=== PATIENT | male | born 1965 ===

== ENCOUNTER 2020-05-12 09:43 | Outpatient (REF) | payer MEDICAID, SELFPAY | END 2020-05-12 09:44 | disposition home or self-care (01) | LOC: HO.LAB 09:43 | PROVIDERS: Visit Provider Internal Medicine | DX: Z20.828 Contact with and (suspected) exposure to other viral communicable diseases (principal) | CPT/HCPCS: C9803; U0003 ==

== ENCOUNTER → 2020-06-14 14:32 | Outpatient (BNVA) | payer OTHER, SELFPAY | PROVIDERS: Visit Provider Physician Assistant | DX: Z13.89 Encounter for screening for other disorder (principal) | CPT/HCPCS: Q3014 ==

== ENCOUNTER 2020-07-20 18:27 | Emergency (ER) | payer OTHER, SELFPAY ==
[2020-07-20 19:33] VITALS: BP 131/81; PULSE 95; RESP 20; TEMP 36.8; O2SAT 98; BMI 27.3
== END 2020-07-21 00:35 | disposition left against medical advice (07) ==
PROVIDERS: Emergency Provider Emergency Medicine; PCP Internal Medicine
DX: K61.0 Anal abscess (principal)
CPT/HCPCS: 99282

== ENCOUNTER 2020-08-05 13:29 | Day surgery (SDC) | payer OTHER, SELFPAY ==
--- NOTE | 2020-08-04 08:56 | HO.ANESPROP2 ---
Documented by User: Celi Soria 08/04/20 08:58 HPI - Anesthesia Eval Consult details Narrative: 55yo M for Colonoscopy [facility] Active Problems Active Problems: All Active Problems (Updated 07/29/20 @ 13:33 by Yanni Orta) Encounter for screening colonoscopy (Acute) Diabetes (Acute) Anxiety and depression (Acute) Past Medical History Medical History Anxiety Depression Diabetes GERD (gastroesophageal reflux disease) Hypothyroid Family History Family History Father No problems noted. Mother No problems noted. Social History Social History Alcohol intake: current Smoking Status: Current every day smoker Use of substances other than those prescribed or required for medical reasons: No Have you been hit, kicked, punched, or otherwise hurt by someone within the past year? If so, by whom?: No Advance Directives: No Advance Directives Information Provided: Yes Current occupational status: [employer] Allergies Allergy/AdvReac Type Severity Reaction Status Date / Time No Known Allergies Allergy Verified 07/20/20 19:38 Home Medications Medication Instructions Recorded Confirmed Last Taken Type escitalopram oxalate 10 mg tablet 10 mg PO DAILY 06/14/20 08/01/20 Unknown History levothyroxine 75 mcg capsule 75 mcg PO DAILY 06/14/20 08/01/20 Unknown History omeprazole 20 mg capsule,delayed 20 mg PO DAILY 06/14/20 08/01/20 Unknown History release sitagliptin 50 mg-metformin 1,000 1 tab PO BID 06/14/20 08/01/20 Unknown History mg tablet tramadol 50 mg tablet 50 mg PO DAILY 06/14/20 08/01/20 Unknown History Exam Exam Date and Time: August 04, 2020 0856 Assessment and Plan Assessment Anesthesia Assessment: Chart Reviewed Documented by User: Cristela Marie 08/05/20 13:54 [facility] Past Medical History Medical History Anxiety Depression Diabetes GERD (gastroesophageal reflux disease) Hypothyroid Family History Family History Father No problems noted. Mother No problems noted. Social History Social History Alcohol intake: current Smoking Status: Current every day smoker Use of substances other than those prescribed or required for medical reasons: No Have you been hit, kicked, punched, or otherwise hurt by someone within the past year? If so, by whom?: No Advance Directives: No Advance Directives Information Provided: Yes Current occupational status: [employer] Allergies Allergy/AdvReac Type Severity Reaction Status Date / Time No Known Allergies Allergy Verified 07/20/20 19:38 Home Medications Medication Instructions Recorded Confirmed Last Taken Type escitalopram oxalate 10 mg tablet 10 mg PO DAILY 06/14/20 08/01/20 Unknown History levothyroxine 75 mcg capsule 75 mcg PO DAILY 06/14/20 08/01/20 Unknown History omeprazole 20 mg capsule,delayed 20 mg PO DAILY 06/14/20 08/01/20 Unknown History release sitagliptin 50 mg-metformin 1,000 1 tab PO BID 06/14/20 08/01/20 Unknown History mg tablet tramadol 50 mg tablet 50 mg PO DAILY 06/14/20 08/01/20 Unknown History Exam Airway Mallampati Class: II TM Dist: >3cm Neck ROM: Full Assessment and Plan Assessment Anesthesia Assessment: Anesthesia Plan Discussed and Chart Reviewed Final Anesthetic Review NPO: Yes ASA Class: II Final Preanesthetic Review: No Changes in Pt Med Stat and Consent Obtained/Reviewed Patient Risk: Low Procedure Risk: Low Assessment/Block/Sedation in SS: Assess/Block/Sedation-SS Anesthetic Plan Anesthetic Plan: MAC: Disposition: Standard PACU
--- NOTE | 2020-08-05 13:31 | W.PM.OPN ---
Operative Note Operative Note Date of Service: 08/05/20 Narrative: Pre-op diagnosis: Colon cancer screening Post-op diagnosis: other (colon polyps, diverticulosis, hemorrhoids) Procedure: COLONOSCOPY TO CECUM WITH BIOPSIES AND SNARE POLYPECTOMY Consent: Indications for the procedure and potential complications of bleeding, perforation, reaction to medications and missed diagnosis were discussed with the patient and informed consent was obtained. Instrument: Olympus PCF H 190 L variable stiffness pediatric colonoscope Monitoring: Vital signs and clinical assessment, intermittent blood pressure monitoring, continuous EKG monitoring, Pulse oximetry and Carbon Dioxide monitoring were done throughout the procedure. Colon withdrawl time was 22 minutes. Procedure: The patient was placed in the left lateral decubitis position and pre-procedure medications were administered. After a digital rectal examination of the ano-rectum, the video colonoscope was inserted into the rectum and advanced through the colon to the cecum. The colonoscope was slowly withdrawn in a retrograde panoramic fashion and the colon mucosa was carefully examined including a retroflexed view of the rectum. Findings and interventions are described below. Procedure Difficulty: Without difficulty Findings: Terminal Ileum: Not evaluated Cecum: Normal Ascending Colon: Normal Transverse Colon: A 10 mm sessile polyp in distal tranverse colon removed with a hot snare. A 4-5 mm diminutive appearing polyp removed with the cold biopsy. Descending Colon: Moderate diverticulosis Sigmoid Colon: Moderate diverticulosis Rectum: A 10-12 mm sessile polyp removed with a hot snare Ano-rectum: Moderate internal hemorrhoids Colon preparation: Good after some irrigation Impression and Post Procedure Diagnosis: Colonoscopy Findings: Three small to medium sized polyps removed Moderate diverticulosis seen in the left colon Moderate hemorrhoids on retroflexed exam. Plan: Await pathology results Patient has an appointment on 08/25/20 in the GI Clinic with CUBA Baptiste . Repeat Colonoscopy interval based on path results - in 3 years if polyps are adenomatous and 10 years if polyps are hyperplastic. Above findings were reviewed with the patient and colon polyps and diverticulosis handouts were given in the discharge area Surgeon: Gab Ge MD Anesthesia: MAC (Adelina Freeman CRNA) Call Center Support Representative: Curry Watson Estimated blood loss (mL): 0 Pathology: other (A. TC polyps x 2, B. Rectal polyp x 1) Condition: stable Disposition: PACU
--- NOTE | 2020-08-05 13:31 | MHC.SHP ---
Pre-Procedural Eval Section A The patient is an INPATIENT: No The History & Physical has been completed within 30 days and I have reviewed it.: No Section B Chief Complaint: Screening Details of Present Illness: 55 y/o male referred for index screening colonoscopy- no FDR with colon cancer. He has a good appetite- his bowels seem to fluctuate- feels like he doesnt completely evacuate- admits to anxiety. Appetite is good. Relevant Family History (Specify if Yes): No Relevant Social History: Tobacco Use Present Medications: see Short Stay Collaborative assessment Medical History: Significant History (Diabetes mellitus, anxiety and depression) History of Previous Operations: No relevant previous surgery Allergies: Allergies Allergy/AdvReac Type Severity Reaction Status Date / Time No Known Allergies Allergy Verified 07/20/20 19:38 Review of Systems Sugical H&P ROS: Negative: Constitution, Cardiovascular, Respiratory and Gastrointestinal Exam Surgical H&P Exam: Normal: Heart, Normal: Lungs, Normal: Extremities and Normal: Abdomen Plan Diagnosis/Plan: Unchanged I have reviewed the history and physical and performed a pertinent physical examination on my patient. No changes have occurred unless specified.
[2020-08-05 13:33] VITALS: BP 109/77; PULSE 76; RESP 18; TEMP 36.2; O2SAT 98; BMI 65.4
[2020-08-05 13:55] LABS: Glucose, Whole Blood 123 mg/dL (60-115)
[2020-08-05] MEDS: Lactated Ringers 1,000 ML 100 ML IVCONT (14:03)
[2020-08-05 15:10] VITALS: BP 94/55; PULSE 73; RESP 14; TEMP 36.7; O2SAT 99
[2020-08-05 15:25] VITALS: BP 115/76; PULSE 73; RESP 16; TEMP 36.7; O2SAT 99
== END 2020-08-05 16:00 | disposition home or self-care (01) ==
PROVIDERS: PCP Internal Medicine; Visit Provider Internal Medicine Gastroenterology
PROC: 0DJD8ZZ Inspection of Lower Intestinal Tract, Via Natural or Artificial Opening Endoscopic (ICD-10-PCS; CPT 45378; principal; 2020-08-05 14:10)
DX: Z12.11 Encounter for screening for malignant neoplasm of colon (principal); K63.5 Polyp of colon; K62.1 Rectal polyp; K57.30 Diverticulosis of large intestine without perforation or abscess without bleeding; K64.8 Other hemorrhoids; K21.9 Gastro-esophageal reflux disease without esophagitis; F32.9 Major depressive disorder, single episode, unspecified; E11.9 Type 2 diabetes mellitus without complications; Z79.84 Long term (current) use of oral hypoglycemic drugs; Z79.899 Other long term (current) drug therapy; F17.210 Nicotine dependence, cigarettes, uncomplicated
CPT/HCPCS: 45385; 45380; 82947; 88305

== ENCOUNTER → 2020-08-25 09:21 | Outpatient (BNVA) | payer OTHER, SELFPAY | PROVIDERS: Visit Provider Physician Assistant | DX: K57.30 Diverticulosis of large intestine without perforation or abscess without bleeding (principal); K63.5 Polyp of colon | CPT/HCPCS: Q3014 ==

== ENCOUNTER 2020-11-08 13:47 | Outpatient (REF) | payer OTHER, SELFPAY | END 2020-11-08 13:48 | disposition home or self-care (01) | LOC: HO.LAB 13:47 | PROVIDERS: PCP Internal Medicine; Visit Provider Internal Medicine | DX: Z20.822 Contact with and (suspected) exposure to COVID-19 (principal) | CPT/HCPCS: C9803; U0003; U0005 ==

== ENCOUNTER → 2021-01-27 09:52 | Outpatient (BNVA) | payer OTHER, SELFPAY | PROVIDERS: PCP Internal Medicine; Visit Provider Internal Medicine | DX: M47.817 Spondylosis without myelopathy or radiculopathy, lumbosacral region (principal); M62.830 Muscle spasm of back | CPT/HCPCS: 99202 ==

== ENCOUNTER 2021-02-16 16:30 | Outpatient (REF) | payer OTHER, SELFPAY ==
--- NOTE | ~2021-02-16 | MR_ITS ---
MR LUMBAR SPINE WITHOUT CONTRAST CLINICAL INFORMATION: Spondylosis without myelopathy or radiculopathy. COMPARISON: None available. TECHNIQUE: MRI of the lumbar spine was obtained using routine sequences without contrast. FINDINGS: 5 nonrib-bearing lumbar-type vertebral bodies. Lumbar alignment is maintained. Vertebral body heights are preserved. The disc volumes are normal and the disc remain well-hydrated. Mild bone marrow edema along the inferior endplate of L4 anteriorly, mostly degenerative or inflammatory. There is no additional bone marrow edema. There are no acute fractures. The L1-L2 and the L2-L3 disc contours are normal. No central canal stenosis and no foraminal stenosis at these levels. L3-L4: Small annular disc bulge and moderate bilateral facet arthropathy. No central canal stenosis. There is mild to moderate bilateral foraminal encroachment. L4-L5: Diffuse annular disc bulge and moderate bilateral facet arthropathy and ligamentum flavum thickening. There is no central canal stenosis. Moderate bilateral foraminal stenosis with mild mass effect on the exiting L4 nerve roots bilaterally. L5-S1: Shallow central disc protrusion mildly indents the ventral thecal sac. Background annular disc bulge and moderate bilateral facet arthropathy. MR/MR lumbar spine wo con IMPRESSION: - At L4-L5, spondylitic changes result in moderate bilateral foraminal stenosis with mild mass effect on the exiting L4 nerve roots bilaterally. - At L5-S1, a shallow central disc protrusion mildly indents the ventral thecal sac.
== END 2021-02-16 16:31 | disposition home or self-care (01) ==
LOC: HO.MRI 16:30
PROVIDERS: PCP Internal Medicine; Visit Provider Internal Medicine
DX: M47.817 Spondylosis without myelopathy or radiculopathy, lumbosacral region (principal)
CPT/HCPCS: 72148

== ENCOUNTER 2021-03-01 06:28 | Outpatient (REF) | payer OTHER, SELFPAY | END 2021-03-01 06:29 | disposition home or self-care (01) | LOC: HO.RADIR 06:28 | PROVIDERS: Visit Provider Internal Medicine | DX: Z13.89 Encounter for screening for other disorder (principal) ==

== ENCOUNTER 2021-03-01 11:52 | Day surgery (SDC) | payer OTHER, SELFPAY ==
--- NOTE | 2021-02-28 15:14 | P.CONAN_ITS ---
Documented by User: Celi Soria NP 02/28/21 15:16 HPI - Anesthesia Eval Consult details Narrative: 55yo M for Medial Branch Block [facility] Active Problems Active Problems: All Active Problems (Updated 01/27/21 @ 10:42 by Henry Keller MD) Spasm of lumbar paraspinous muscle (Acute) Lumbar and sacral spondyloarthritis (Acute) Diverticula of intestine (Acute) Hyperplastic colon polyp (Acute) Encounter for screening colonoscopy (Acute) Diabetes (Acute) Anxiety and depression (Acute) Past Medical History Medical History Anxiety Depression Diabetes GERD (gastroesophageal reflux disease) Hypothyroid Lumbar and sacral spondyloarthritis Family History Family History Father No problems noted. Mother No problems noted. Surgical History Surgical History (Updated 08/25/20 @ 09:23 by Azalia Portillo CMA) Hx of colonoscopy Social History Social History (Updated 08/25/20 @ 09:25 by Azalia Portillo CMA) Household Members: None Household Members Other:: alone Alcohol intake: current Alcohol intake frequency: does not drink Cigarettes Per Day: 4 Advance Directives: No Advance Directives Information Provided: Yes Current occupational status: disabled Meds Allergies Allergy/AdvReac Type Severity Reaction Status Date / Time No Known Allergies Allergy Verified 03/01/21 13:02 Home Medications Medication Instructions Recorded Confirmed Last Taken Type escitalopram oxalate 10 mg tablet 10 mg PO DAILY 06/14/20 08/25/20 Unknown History (Lexapro) levothyroxine 75 mcg capsule 75 mcg PO DAILY 06/14/20 08/25/20 Unknown History omeprazole 20 mg capsule,delayed 20 mg PO DAILY 06/14/20 08/25/20 Unknown History release sitagliptin 50 mg-metformin 1,000 1 tab PO BID 06/14/20 08/25/20 02/28/21 History mg tablet (Janumet) tramadol 50 mg tablet 50 mg PO DAILY 06/14/20 08/25/20 Unknown History Exam Exam Date and Time: February 28, 2021 2364 Pertinent Lab Results Pertinent Lab Results: Laboratory Tests 06/20/19 06/20/19 07:15 07:15 WBC 8.6 Hgb 15.9 Hct 49.0 Plt Count 193 Sodium 139 Potassium 4.4 Chloride 104 BUN 14 Creatinine 0.96 Assessment and Plan Assessment Anesthesia Assessment: Chart Reviewed Documented by User: Katie Fink MD 03/01/21 13:03 [facility] Past Medical History Medical History Anxiety Depression Diabetes GERD (gastroesophageal reflux disease) Hypothyroid Lumbar and sacral spondyloarthritis Functional capacity: independent ambulation Family History Family History Father No problems noted. Mother No problems noted. Family history of problems with anesthesia: No Surgical History Surgical History (Updated 08/25/20 @ 09:23 by Azalia Portillo CMA) Hx of colonoscopy History of Problems with Anesthesia: No Social History Social History (Updated 08/25/20 @ 09:25 by Azalia Portillo CMA) Household Members: None Household Members Other:: alone Alcohol intake: current Alcohol intake frequency: does not drink Cigarettes Per Day: 4 Advance Directives: No Advance Directives Information Provided: Yes Current occupational status: disabled Meds Allergies Allergy/AdvReac Type Severity Reaction Status Date / Time No Known Allergies Allergy Verified 03/01/21 13:02 Home Medications Medication Instructions Recorded Confirmed Last Taken Type escitalopram oxalate 10 mg tablet 10 mg PO DAILY 06/14/20 08/25/20 Unknown History (Lexapro) levothyroxine 75 mcg capsule 75 mcg PO DAILY 06/14/20 08/25/20 Unknown History omeprazole 20 mg capsule,delayed 20 mg PO DAILY 06/14/20 08/25/20 Unknown Histor y release sitagliptin 50 mg-metformin 1,000 1 tab PO BID 06/14/20 08/25/20 02/28/21 History mg tablet (Janumet) tramadol 50 mg tablet 50 mg PO DAILY 06/14/20 08/25/20 Unknown History Exam Airway Mallampati Class: II TM Dist: >3cm Neck ROM: Full Heart: RRR Lungs: CYS Assessment and Plan Final Anesthetic Review Family History of Problems with Anesthesia: No History of Problems with Anesthesia: No
--- NOTE | ~2021-03-01 | FL_ITS ---
EXAMINATION: XR FLUOROSCOPY WITH IMAGES CLINICAL INFORMATION: Bilateral medial branch block. Spondylosis without myelopathy or radiculopathy COMPARISON: MR lumbar spine 02/16/2021 TECHNIQUE: Fluoroscopy performed by Dr. Keller. Fluoroscopy time: 0.4 minutes DAP: 1.65 mGycm2 Images: 3 FINDINGS: There are spinal needles overlying the bilateral outer L3, L4, and L5 neural foramen. There is contrast seen in the respective nerve sheaths. Some early transforaminal epidural extension is suggested. No visible vascular communication. FL/FL guidance in OR IMPRESSION: Fluoroscopy for pain management procedures.
[2021-03-01 12:45] VITALS: BP 127/82; PULSE 81; RESP 16; TEMP 37; O2SAT 97
[2021-03-01 12:59] LABS: Glucose, Whole Blood 124 mg/dL (60-115)
[2021-03-01 13:02] VITALS: BP 127/82; PULSE 81; RESP 16; TEMP 37; O2SAT 97; BMI 27.4
[2021-03-01] MEDS: Lactated Ringers 1,000 ML 100 ML IVCONT (13:29)
--- NOTE | 2021-03-01 13:40 | MHC.SHP ---
Pre-Procedural Eval Section A Date of Service: 03/01/21 The patient is an INPATIENT: No Changes since office visit: Yes Patient answered all questions The History & Physical has been completed within 30 days and I have reviewed it.: Yes Section B Chief Complaint: spondylosis without myelopathy Allergies: Allergies Allergy/AdvReac Type Severity Reaction Status Date / Time No Known Allergies Allergy Verified 03/01/21 13:02 Plan Diagnosis/Plan: Unchanged I have reviewed the history and physical and performed a pertinent physical examination on my patient. No changes have occurred unless specified.
[2021-03-01 14:35] VITALS: BP 105/74; PULSE 72; RESP 16; TEMP 36.7; O2SAT 97
[2021-03-01 14:50] VITALS: BP 113/76; PULSE 62; RESP 16; TEMP 36.7; O2SAT 99
--- NOTE | 2021-03-01 14:51 | PM.OP ---
Brief Operative Note Date of Service: 03/01/21 Pre-op diagnosis: Lumbar spondylosis Post-op diagnosis: same Procedure: Lumbar medial branch blocks, bilateral Surgeon: Henry Keller MD Anesthesia: MAC Was an Telephone Clerk [employer] used for this Procedure?: No Estimated blood loss (mL): 1 Pathology: none sent Condition: stable Disposition: PACU
--- NOTE | 2021-03-01 17:29 | P.OP_ITS ---
Operative Note Operative Note Date of Service: 03/01/21 Narrative: Lumbar Medial Branch Block, Bilateral L3, L4 medial branches and L5 Dorsal Ramus (2 levels, 3 nerves) After obtaining written consent, pre-procedure blood pressure and pulse were recorded and are in the nursing record for review. The patient was brought to the OR, placed in a prone position and sedated by the linen room supervisor. The respective lumbosacral area was prepped with chloraprep and draped in sterile fashion. The skin over the target medial branch nerves was anesthetized with 0.5% lidocaine. A 22 gauge 3.5 inch needle was inserted into the target medial branch nerve under fluoroscopic guidance. No paresthesias were elicited with needle placement and aspiration was negative for blood and CSF. Next, 0.2cc of omnipaque 180 was injected to verify positioning. Next 0.7ml of 0.5% bupivicaine was injected. The identical procedure was performed at the remaining levels. The skin was cleansed and a sterile bandage was applied. Following the procedure the patient's vital signs were stable and he was brought to the PACU in stable condition. The patient tolerated the procedure well and no complications were encountered. Following the procedure the patient's vital signs were stable. The patient was d ischarged home in good condition with post-procedural instructions. Time Out: Immediately prior to the procedure, the following was verbally confirmed that there is a signed consent form and that the correct patient, planned procedure, site and side are consistent with documentation and that necessary equipment and/or blood products are available prior to the start of the case. Complications: none EBL: <2 cc
== END 2021-03-01 16:00 | disposition home or self-care (01) ==
PROVIDERS: PCP Internal Medicine; Visit Provider Internal Medicine
PROC: (CPT 64493; principal; 2021-03-01 13:30)
DX: M47.816 Spondylosis without myelopathy or radiculopathy, lumbar region (principal); M54.50 Low back pain, unspecified; E11.9 Type 2 diabetes mellitus without complications
CPT/HCPCS: 64493; 64494 ×2; 82947; J2250; J3010; Q9967

== ENCOUNTER → 2021-03-06 08:37 | Outpatient (BNVA) | payer OTHER, SELFPAY | PROVIDERS: Visit Provider Internal Medicine | DX: M47.817 Spondylosis without myelopathy or radiculopathy, lumbosacral region (principal) | CPT/HCPCS: 99212 ==

== ENCOUNTER 2022-11-17 21:44 | Emergency (ER) | payer OTHER, SELFPAY ==
[2022-11-17 21:46] VITALS: BP 138/99; PULSE 90; RESP 18; TEMP 37; O2SAT 98; BMI 25.8
--- NOTE | 2022-11-17 23:43 | ED.GENADULT ---
HPI - General Adult General Chief complaint: Abdominal Pain Stated complaint: Abd pain/Back pain Time Seen by Provider: 11/17/22 23:29 Source: patient, RN notes reviewed, old records reviewed and ux lead Mode of arrival: ambulatory Limitations: language barrier History of Present Illness HPI narrative: 57-year-old male with past medical history significant for diabetes, anxiety, depression presents for evaluation of abdominal pain Patient reports his pain started yesterday and got worse today. It is to his entire abdomen. His pain is 6/10 pain it is in his stay is reminiscent of ?gastritis that he has had in the past He denies any associated symptoms including nausea vomiting, diarrhea, constipation Denies any fevers, chills Patient denies any history abdominal surgeries No other complaints or concerns at this time Related Data Home Medications Medication Instructions Recorded Confirmed escitalopram oxalate 10 mg tablet 10 mg PO DAILY 06/14/20 08/25/20 (Lexapro) levothyroxine 75 mcg capsule 75 mcg PO DAILY 06/14/20 08/25/20 omeprazole 20 mg capsule,delayed 20 mg PO DAILY 06/14/20 08/25/20 release sitagliptin phosphate 50 1 tab PO BID 06/14/20 08/25/20 mg-metformin 1,000 mg tablet (Janumet) tramadol 50 mg tablet 50 mg PO DAILY 06/14/20 08/25/20 Previous Rx's Medication Instructions Recorded aluminum-mag hydroxide-simethicone 10 ml PO QID PRN indigestion #355 11/18/22 200 mg-200 mg-20 mg/5 mL oral susp mL (Maalox Advanced) ondansetron 4 mg disintegrating 4 mg PO Q8H PRN nausea and 11/18/22 tablet vomiting #20 tabs Allergies Allergy/AdvReac Type Severity Reaction Status Date / Time No Known Allergies Allergy Verified 03/01/21 13:02 Review of Systems Constitutional: Constitutional: Reports as per HPI, Denies chills, Denies fatigue, Denies fever(s) and Denies headache(s) ENT: Denies headache(s) Cardiovascular: Cardiovascular: Denies chest pain and Denies dyspnea Respiratory: Respiratory: Denies cough and Denies dyspnea Gastrointestinal: Gastrointestinal: Reports abdominal pain, Denies constipation, Denies nausea and Denies vomiting Genitourinary: Genitourinary: Denies difficulty urinating and Denies dysuria Neurologic: Denies headache(s) and Denies focal weakness Endocrine: Endocrine: Denies fatigue PMFSH Past Medical History Medical History Anxiety Depression Diabetes GERD (gastroesophageal reflux disease) Hypothyroid Lumbar and sacral spondyloarthritis Surgical History (Updated 08/25/20 @ 09:23 by Azalia Portillo CMA) Hx of colonoscopy Family History Family History Father No problems noted. Mother No problems noted. Social History Social History (Updated 08/25/20 @ 09:25 by Azalia Portillo CMA) Household Members: None Household Members Other:: alone Alcohol intake: never Patient Tobacco Use Status: Current everyday Tobacco user Tobacco use type: Cigarette Cigarettes Per Day: 5 Years Smoked: 30 Smoked in Last 30 Days: No Use of substances other than those prescribed or required for medical reasons: No Advance Directives: No Advance Directives Information Provided: No Current occupational status: disabled Physical Exam ED Vital Signs: Vital Signs - 24 hr 11/17/22 21:46 Temperature 98.6 F Pulse Rate 90 Respiratory Rate 18 Blood Pressure 138/99 H Pulse Oximetry 98 Oxygen Delivery Method Room Air BMI result Body Mass Index 25.8 Const General: healthy appearing, comfortable, no acute distress, alert and awake Nutritional Appearance: well nourished Orientation/consciousness: patient oriented x3 HENMT Head: Yes normocephalic and Yes atraumatic Throat: Yes posterior oropharynx normal Eyes Eyelids: Yes eyelids normal Conjunctivae: conjunctivae normal Sclerae: sclerae normal Corneas: corneas normal Pupils: Equal, round and reactive pupils present EOM: EOMs intact bilaterally Neck Neck: Yes full ROM Resp Effort & Inspection: normal respiratory effort, able to speak in complete sentences, no audible wheezes and not labored Auscultation: clear to auscultation bilaterally Cardio Rate: regular rate Rhythm: regular rhythm GI Inspection: No distended Palpation (GI): Soft to palpation, not firm, Tenderness to palpation present (GI) in the RLQ, Guarding due to palpation present (GI) and not rigid Auscultation: normoactive bowel sounds Skin General skin exam: no rashes or lesions noted and elasticity normal Neuro General: patient oriented x3 Cranial nerves: Yes Equal, round and reactive pupils present and Yes Bilaterally intact EOM present Cognition (Neuro): normal cognition Extrem Other: Moving all extremities well without any obvious deformities Medications Administered Discontinued Medications Generic Name Dose Route Start Last Admin Trade Name Tay PRN Reason Stop Dose Admin Iohexol 85 ml 11/18/22 00:17 11/18/22 00:17 Iohexol 350 Mg/Ml 100 Ml Infus..Btl IV 11/18/22 00:18 85 ml ONCE ONE Administration Pantoprazole Sodium 40 mg 11/17/22 23:39 11/17/22 23:47 Pantoprazole Sodium 40 Mg/10 Ml Vial IVPUSH 11/17/22 23:40 40 mg ONCE ONE Administration Medical Decision Making Medical Decision Making [facility] Narrative: 57-year-old male presents for evaluation of abdominal pain. He is quite tender in the right lower quadrant on exam. Will get a CT scan of the abdomen pelvis to evaluate for the appendix Differential Diagnosis Acute appendicitis Abdominal pain Constipation Obstipation Gastritis Gastroenteritis Lab Data [facility] Lab Attestation statement: I reviewed the patient's lab results. Mild leukocytosis of 12.3 K without left shift. Electrolytes than normal limit 11/17/22 22:05 11/17/22 22:05 Labs: Lab Results 11/17/22 11/17/22 11/17/22 Range/Units 22:05 22:05 22:23 WBC 12.3 H (4.8-10.8) X10*3/uL RBC 4.91 (4.60-5.80) X10*6/uL Hgb 14.0 (14.0-18.0) g/dl Hct 42.0 (42.0-52.0) % MCV 85.5 (80.0-98.0) fL MCH 28.5 (27.0-33.0) pg MCHC 33.3 (31.0-36.0) g/dl RDW 12.9 (11.0-16.0) % Plt Count 267 (160-400) X10*3/uL MPV 10.7 (9.4-12.4) fL Immature Gran % (Auto) 0.4 (0.0-0.4) % Neut % (Auto) 51.2 (45-73) % Lymph % (Auto) 37.3 (20-40) % [place] % (Auto) 8.7 (2-11) % Eos % (Auto) 1.8 (0-4) % Baso % (Auto) 0.6 (0-2) % Lymph # (Auto) 4.6 (1.2-4.9) X10*3/uL [place] # (Auto) 1.1 (0.1-1.2) X10*3/uL Eos # (Auto) 0.2 (0.0-0.4) X10*3/uL Baso # (Auto) 0.1 (0.0-0.2) X10*3/uL Abs Immat Gran (auto) 0.05 H (0.00-0.03) X10*3/uL Absolute Neuts (auto) 6.3 (2.0-8.3) x10*3/uL Absolute Nucleated RBC 0.000 (0.0-0.012) X10*3/uL Nucleated RBC % (auto) 0.0 (0.0-0.2) /100WBC Sodium 137 (135-145) mmol/L Potassium 4.2 (3.3-5.1) mmol/L Chloride 104 (96-108) mmol/L Carbon Dioxide 22 (22-29) mmol/L Anion Gap 15 (12-20) BUN 8 L (9-16) mg/dL Creatinine 0.87 (0.5-1.4) mg/dL Estim Creat Clear Calc 82.5 Estimated GFR > 60 Random Glucose 100 (60-115) mg/dL Calcium 10.3 H (8.4-10.2) mg/dL Total Bilirubin 0.6 (0.0-1.0) mg/dL Direct Bilirubin 0.1 (0.0-0.5) mg/dL AST 15 (5-37) U/L ALT 12 (0-40) U/L Alkaline Phosphatase 84 (39-117) U/L Total Protein 7.8 (6.5-8.0) g/dL Albumin 4.3 (3.5-5.0) g/dL Lipase 60 (8-78) U/L Urine Color Yellow Urine Appearance Clear Urine pH 7.0 (5.0-9.0) Ur Specific [place] 1.010 (1.005-1.025) Urine Protein Negative (Neg-Trace) mg/dL Urine Glucose (UA) 100 H (Negative) mg/dL Urine Ketones Negative (Negative) mg/dL Urine Blood Negative (Negative) Urine Nitrite Negative (Negative) Ur Leukocyte Esterase Negative (Negative) Radiology Impression Discussion of test interpretation with radiology: I have reviewed the radiologist's reading. (CT scan without acute findings) Discharge Plan Discharge Clinical Impression: Abdominal pain Patient Disposition: Home, Self-Care Instructions: Gastritis (ED) Additional Instructions: Your workup in the emergency department today was reassuring Your symptoms are likely related to gastritis Take Maalox as needed for breakthrough abdominal pain You may use ondansetron as needed for nausea and vomiting Follow-up with your primary doctor Your CT scan did not show any acute finding Prescriptions: New ondansetron 4 mg tablet,disintegrating 4 mg PO Q8H PRN (Reason: nausea and vomiting) Qty: 20 0RF alum-mag hydroxide-simeth [Maalox Advanced] 200-200-20 mg/5 mL suspension 10 ml PO QID PRN (Reason: indigestion) Qty: 355 0RF Rx Instructions: administer between meals and at bedtime No Action omeprazole 20 mg capsule,delayed release(DR/EC) 20 mg PO DAILY escitalopram oxalate [Lexapro] 10 mg tablet 10 mg PO DAILY levothyroxine 75 mcg capsule 75 mcg PO DAILY tramadol 50 mg tablet 50 mg PO DAILY Janumet 50-1,000 mg tablet 1 tab PO BID
== END 2022-11-18 01:10 | disposition home or self-care (01) ==
PROVIDERS: Emergency Provider Emergency Medicine; PCP Internal Medicine
DX: R10.9 Unspecified abdominal pain (principal); E11.9 Type 2 diabetes mellitus without complications; F17.210 Nicotine dependence, cigarettes, uncomplicated; Z79.899 Other long term (current) drug therapy; Z79.84 Long term (current) use of oral hypoglycemic drugs
CPT/HCPCS: 36415; 74177; 80048; 80076; 81003; 83690; 85025; 93005; 96374; 99284; 99285; Q9967